=== PATIENT | female | born 1995 | race African-American/Black ===

== ENCOUNTER 2020-12-31 10:04 | Emergency (ER) | payer SELFPAY ==
[~2020-12-31] VITALS: Ht 165.1 cm; Wt 118.0 kg
[2020-12-31 10:11] VITALS: BP 129/60
--- NOTE | 2020-12-31 10:24 | ED.ADGEN ---
Past Medical History Past Medical History: No Pertinent History Past Surgical History: No Surgical History Smoking Status: Never Smoker Alcohol Use: Occasionally General Adult EDM: Chief Complaint: DIZZY/LIGHT HEADED HPI: HPI: Patient is a 25-year-old female who arrives ambulatory to the emergency department complaining of feeling dizzy and lightheaded since yesterday. Patient reports yesterday she began feeling lightheaded and dizzy whenever she would rise from a seated position. The only way she would experience resolution of her symptoms was to maintain a seated position and rest. Patient also reports she had some nausea and was vomiting "foam". The patient states despite her symptoms she is not had any fevers, pain or neurological symptoms otherwise. She further denies any history of recent illness and states she is not likely as she is in a monogamous relationship with another woman. She is awake, alert and nontoxic-appearing. Review of Systems: Review of Systems: Constitutional: Denies fever or chills. [] Eyes: Denies change in visual acuity. [] HENT: Denies nasal congestion or sore throat. [] Respiratory: Denies cough or shortness of breath. [] Cardiovascular: Denies chest pain or edema. [] GI: Reports vomiting. Denies abdominal pain, nausea, bloody stools or diarrhea. [] : Denies dysuria. [] Musculoskeletal: Denies back pain or joint pain. [] Integument: Denies rash. [] Neurologic: Reports dizziness and lightheaded. denies headache, focal weakness or sensory changes. [] Endocrine: Denies polyuria or polydipsia. [] Lymphatic: Denies swollen glands. [] Psychiatric: Denies depression or anxiety. [] Family History: Family History: Noncontributory Allergies: Allergies: Allergies Coded Allergies Type Severity Reaction Last Updated Verified No Known Drug Allergies 12/31/20 No Physical Exam: PE: Constitutional: Well developed, well nourished, no acute distress, non-toxic appearance. [] HENT: Normocephalic, atraumatic, bilateral external ears normal, oropharynx moist, no oral exudates, nose normal. [] Eyes: PERRLA, EOMI, conjunctiva normal, no discharge. [] Neck: Normal range of motion, no tenderness, supple, no stridor. [] Cardiovascular:Heart rate regular rhythm, no murmur [] Lungs & Thorax: Bilateral breath sounds clear to auscultation [] Abdomen: Bowel sounds normal, soft, no tenderness, no masses, no pulsatile masses. [] Skin: Warm, dry, no erythema, no rash. [] Back: No tenderness, no CVA tenderness. [] Extremities: No tenderness, no cyanosis, no clubbing, ROM intact, no edema. [] Neurologic: Alert and oriented X 3, normal motor function, normal sensory function, no focal deficits noted. [] Psychologic: Affect normal, judgement normal, mood normal. [] Current Patient Data: Labs: Laboratory Tests Test 12/31/20 10:32 12/31/20 10:35 POC Urine HCG, Qualitative Hcg negative (Negative) Glucose (Fingerstick) 93 mg/dL (70-99) Vital Signs: Vital Signs Date Time Temp Pulse Resp B/P (MAP) Pulse Ox O2 Delivery O2 Flow Rate FiO2 12/31/20 10:11 98.7 92 18 129/60 (83) 99 Room Air 98.7 EKG: EKG: EKG was obtained at 10:30 AM and revealed a normal sinus rhythm with a ventricular rate of 76 bpm. Intervals are normal without acute ST/T wave changes that may denote any acute cardiac injury. [] Heart Score: HEART Score for Chest Pain: HEART Score for Chest Pain Response (Comments) Value History Slighlty/Non-Suspicious 0 ECG Normal 0 Age < 45 0 Risk Factors No Risk Factors 0 Troponin < Normal Limit 0 Total 0 Risk Factors: Risk Factors: DM, Current or recent (<one month) smoker, HTN, HLP, family history of CAD, obesity. Risk Scores: Score 0 - 3: 2.5% MACE over next 6 weeks - Discharge Home Score 4 - 6: 20.3% MACE over next 6 weeks - Admit for Clinical Observation Score 7 - 10: 72.7% MACE over next 6 weeks - Early Invasive Strategies Radiology/Procedures: Radiology/Procedures: [] Course & Med Decision Making: Course & Med Decision Making Pertinent Labs and Imaging studies reviewed. (See chart for details) [] The patient remains awake, alert and in no acute distress. The patient's EKG, Accu-Chek as well as test are all within normal limits. The patient has a peculiar set of symptoms however I do believe the patient does not likely suffer from any acute life-threatening emergency. Specifically I do not believe she has any kind of cardiogenic arrhythmia nor does she have any acute neurological process. The patient symptoms may best be explained by a likely viral infection. The patient states however she does not leave the house with any regularity and has not had any known coronavirus exposures. She further states she is not had any shortness of air or cough. I have advised that she be tested should she experience any of the symptoms within the coming days. Should she develop any fevers, headaches, neck stiffness or change in her condition for the worse, I have advised her to return. The patient understands and has agreed to do so. She is nontoxic-appearing and neurologically intact. She is stable for discharge. Dee Disclaimer: Dee Disclaimer: This electronic medical record was generated, in whole or in part, using a voice recognition dictation system. Departure Departure Impression: Primary Impression: Dizziness of unknown cause Disposition: 01 DC HOME SELF CARE/HOMELESS Condition: GOOD Patient Instructions: Dizziness, Near-Syncope, Viral Syndrome Scripts Meclizine Hcl (MECLIZINE HCL) 25 Mg Tablet 1 TAB PO TID for dizziness for 5 Days, #15 TAB Prov: PIPER JUNG DO 12/31/20 PIPER JUNG DO Dec 31, 2020 10:24
[2020-12-31] MEDS ORDERED: MECL-75 PO (10:49)
== END 2020-12-31 11:18 | disposition home or self-care (01) ==
LOC: ER 10:04
DX: R42 Dizziness and giddiness (principal); R11.2 Nausea with vomiting, unspecified
CPT/HCPCS: 81025; 82962; 93005; 99284